=== PATIENT | male | born 1975 | race Native Hawaiian/Other Pacific Islander ===

== ENCOUNTER 2019-06-10 06:53 | Emergency (ER) | payer OTHER ==
[2019-06-10] MEDS ORDERED: BUFFERED LIDOCAINE 10 ML SYRINGE SUBQ STA (07:09)
[2019-06-10] MEDS ORDERED: TETANUS/DIPHTHERIA/PERTUSSIS 0.5 ML SYRINGE IM ONE (08:00)
--- NOTE | 2019-06-10 08:03 | ED Physician Documentation ---
PD HPI HEAD INJURY - Stated complaint Stated Complaint: HEAD LAC - Chief complaint Chief Complaint: Laceration - History obtained from History obtained from: Patient - History of Present Illness Mechanism of head injury: Fell Where head injury occurred: Work Timing - onset: Today Location of injury: Back Quality of pain: Pain Associated symptoms: Other (laceration). 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 He did not have any loss of consciousness associated with this he jumped right back up and had 2 large lacerations to the back of the scalp. He is coming now for suturing. He denies any nausea or vomiting he denies any neck pain. Denies any other specific injury associated with this fall. Review of Systems Constitutional: denies: Fever Eyes: denies: Decreased vision Ears: denies: Ear pain Nose: denies: Congestion Throat: denies: Sore throat Respiratory: denies: Cough GI: denies: Nausea, Vomiting Skin: reports: Laceration (s) PD PAST MEDICAL HISTORY - Past Medical History Past Medical History: No - Past Surgical History Past Surgical History: No - Present Medications Home Medications: Ambulatory Orders Medication Instructions Recorded Confirmed No Known Home Medications 06/10/19 06/10/19 - Allergies Allergies/Adverse Reactions: Allergies Allergy/AdvReac Type Severity Reaction Status Date / Time No Known Drug Allergies Allergy Verified 06/10/19 07:00 - Social History Does the pt smoke?: No Smoking Status: Never smoker Does the pt drink ETOH?: Yes Does the pt have substance abuse?: No - Immunizations Immunizations are current?: Yes PD ED PE NORMAL - Vitals Vital signs reviewed: Yes (hypertensive ) - General General: Alert and oriented X 3, No acute distress, Well developed/nourished - HEENT HEENT: PERRL, EOMI, Other (There are 2 linear lacerations to the occiput one is 4cm and the other is 6cm and there is a large hematoma without crepitance or step off to suggest fracture. ) - Neck Neck: Supple, no meningeal sign, No bony TTP - Respiratory Respiratory: No respiratory distress - Derm Derm: Normal color, Warm and dry, No rash - Extremities Extremities: No deformity, No edema - Neuro Neuro: Alert and oriented X 3, music mixer 2-12 intact, No motor deficit, No sensory deficit, Normal speech Eye Opening: Spontaneous Motor: Obeys Commands Verbal: Oriented GCS Score: 15 - Psych Psych: Normal mood, Normal affect Results - Vitals Vitals: Vital Signs - 24 hr 06/10/19 06:57 Temperature 36.3 C L Heart Rate 75 Respiratory 18 Rate Blood Pressure 153/95 H O2 Saturation 100 Oxygen O2 Source Room air Procedures - Laceration (location) scalp Length in cm: 10 (two lacs one is 4cm one is 6cm ) Wound type: Linear, Into subcut fat, Clean Neurovascular status: Sensory intact, Motor intact Anesthesia: Lidocaine 1%, With bicarb Wound Preparation: Hibiclens, Irrigated copiously NS, Wound explored, To the base Skin layer closure: Jacquelin Other: Patient tolerated well, No complications, Dressing applied, Tetanus booster given PD MEDICAL DECISION MAKING - ED course Complexity details: re-evaluated patient, considered differential, d/w patient ED course: 44 y/o male with scalp laceration after falling on a wet floor has jacquelin placed and tolerates the procedure well. Departure - Departure Disposition: 01 Home, Self Care Clinical Impression: Scalp laceration Qualifiers: Encounter type: initial encounter Qualified Code(s): S01.01XA - Laceration without foreign body of scalp, initial encounter Condition: Stable Instructions: ED Laceration Scalp Stitch Or Stap Follow-Up: [facility] [Provider Group] Comments: Jacquelin will need to be removed in 7-10 days
[2019-06-10 08:24] VITALS: BP 155/97
[2019-06-10] MEDS ORDERED: BACITRACIN ZINC OINT 14 GM TOP ONE (08:41)
== END 2019-06-10 08:38 | disposition home or self-care (01) ==
LOC: ED 06:53
DX: S01.01XA Laceration without foreign body of scalp, initial encounter (principal); W01.0XXA Fall on same level from slipping, tripping and stumbling without subsequent striking against object, initial encounter; Y93.E5 Activity, floor mopping and cleaning; Y92.511 Restaurant or cafe as the place of occurrence of the external cause; Y99.0 Civilian activity done for income or pay; Z23 Encounter for immunization
CPT/HCPCS: 1040M; 12004; 90471; 90715; 99283; 99284; A9270

== ENCOUNTER 2019-06-21 12:59 | Emergency (ER) | payer OTHER ==
[2019-06-21 13:09] VITALS: BP 167/77
--- NOTE | 2019-06-21 13:25 | ED Physician Documentation ---
History of Present Illness - Stated complaint Stated Complaint: HEAD SUTURE REMOVAL - Chief complaint Chief Complaint: General - History obtained from History obtained from: Patient - History of Present Illness Timing: How many days ago (10) Pain level max: 0 Pain level now: 0 - Additonal information Additional information: Leonidas placed in the occiput 10 days ago. Here for removal. No complaints. No drainage. No fevers. Review of Systems Constitutional: denies: Fever Skin: denies: Rash PD PAST MEDICAL HISTORY - Past Medical History Past Medical History: No - Past Surgical History Past Surgical History: No - Present Medications Home Medications: Ambulatory Orders Medication Instructions Recorded Confirmed No Known Home Medications 06/10/19 06/10/19 - Allergies Allergies/Adverse Reactions: Allergies Allergy/AdvReac Type Severity Reaction Status Date / Time No Known Drug Allergies Allergy Verified 06/10/19 07:00 - Social History Does the pt smoke?: No Smoking Status: Never smoker Does the pt drink ETOH?: Yes Does the pt have substance abuse?: No - Immunizations Immunizations are current?: Yes Immunizations: TDAP current <10years PD ED PE NORMAL - Vitals Vital signs reviewed: Yes - General General: Alert and oriented X 3, No acute distress - HEENT HEENT: Other (2 well-healed lacerations to the occiput. No signs of infection) - Derm Derm: Warm and dry - Neuro Neuro: Alert and oriented X 3 Results - Vitals Vitals: Vital Signs - 24 hr 06/21/19 13:08 Temperature 36.7 C Heart Rate 76 Respiratory 18 Rate Blood Pressure 167/77 H O2 Saturation 100 Oxygen O2 Source Room air PD MEDICAL DECISION MAKING - ED course Complexity details: considered differential, d/w patient ED course: Leonidas removed. No signs of infection. This document was made in part using voice recognition software. While efforts are made to proofread this document, sound alike and grammatical errors may occur. Departure - Departure Disposition: 01 Home, Self Care Clinical Impression: Removal of staple Condition: Good Instructions: ED Stap Removal No Complication Follow-Up: your,doctor as needed [Other] Comments: Return if you notice redness, swelling or drainage from the wound. Discharge Date/Time: 06/21/19 13:33
== END 2019-06-21 13:33 | disposition home or self-care (01) ==
LOC: ED 12:59
DX: S01.01XD Laceration without foreign body of scalp, subsequent encounter (principal); Z48.02 Encounter for removal of sutures
CPT/HCPCS: 99281

== ENCOUNTER 2021-02-23 11:52 | Inpatient (IN) | payer OTHER, MEDICAID ==
--- OUTSIDE RECORDS SUMMARY | 2021-02-23 11:56 | EXTERNAL MEDICAL SUMMARY RPT | Continuity of Care Document ---
:1975 Demographics Phone Unavailable Preferred Language Unknown Marital Status Unknown Hinduism Affiliation Unknown Race Unknown Ethnic Group Unknown Author Organization [place] Address [address] [phone] Phone Care Team Providers Name Role Phone Dudley MATUTE Unavailable Unavailable Registrar, Ashley Davis Patient Unavailable Unavai lable Allergies Encounters Medications Problems date description facility 20210222 No current problems or disability - unk nown All 20210222 Tobacco use and exposure All 20210222 Tobacco smoking status NHIS All 20210222 Never smoker All 20210222 Details of drug misuse behavior All 20210222 Cellulitis of left lower limb All 20210222 Cellulitis of foot All 20210222 Cellulitis and abscess of foot, except toes All 20210222 Alcohol use All Results Vital Signs date measurement value source 20210222 weight_standard 217 lb 20210222 weight_metric 98.43 kg 20210222 temperature_standard 99.7 F 20210222 temperature_metric 37.61 C 20210222 respiration_rate 16 /min 20210222 height_standard 69 in 20210222 height_metric 175.26 cm 20210222 heart_rate 89 /min 20210222 BP_systolic 167 mm[Hg] 20210222 BP_diastolic 100 mm[Hg] 20210222 BMI 32.16 kg/m2
--- OUTSIDE RECORDS SUMMARY | 2021-02-23 12:31 | EXTERNAL MEDICAL SUMMARY RPT | Continuity of Care Document ---
:1975 Demographics Phone Unavailable Preferred Language Unknown Marital Status Unknown Pentecostal Affiliation Unknown Race Unknown Ethnic Group Unknown Author Organization [place] Address [address] [phone] Phone Care Team Providers Name Role Phone Registrar, Ashley Davis Patient Unavailable Maliha wellington MD, Dudley Viveros Unavailable Unavailable Allergies Encounters Medications Problems date description facility [...]
[2021-02-23] MEDS ORDERED: VANCOMYCIN INJ 2 GM in SODIUM CHLORIDE 0.9% 500 ML IV ONE (12:44)
[2021-02-23] MEDS ORDERED: AMPICILLIN/SULBACTAM 3 GM in SODIUM CHLORIDE 0.9% MINIBAG 100 ML IV STA (12:44)
--- NOTE | 2021-02-23 12:45 | ED Physician Documentation ---
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 He feels like he might of gotten catalan to the left foot and has had progressive swelling and redness of that foot but only minimal pain. He is not diabetic but nor has he ever been checked for diabetes. That said he only has 1-2 episodes of nocturia per evening. He denies fevers. Review of Systems Ten Systems: 10 systems reviewed and negative Constitutional: denies: Fever, Chills Cardiac: denies: Chest pain / pressure, Palpitations Respiratory: denies: Dyspnea, Cough PD PAST MEDICAL HISTORY - Past Surgical History Past Surgical History: No - Present Medications Home Medications: Ambulatory Orders Medication Instructions Recorded Confirmed No Known Home Medications 06/10/19 02/23/21 - Allergies Allergies/Adverse Reactions: Allergies Allergy/AdvReac Type Severity Reaction Status Date / Time No Known Drug Allergies Allergy Verified 02/23/21 12:38 - Social History Does the pt smoke?: No Smoking Status: Never smoker Does the pt drink ETOH?: Yes Does the pt have substance abuse?: No - Immunizations Immunizations are current?: Yes Immunizations: TDAP current <10years PD ED PE NORMAL - Vitals Vital signs reviewed: Yes - General General: Alert and oriented X 3, No acute distress - HEENT HEENT: PERRL, EOMI - Neck Neck: Supple, no meningeal sign, No bony TTP - Cardiac Cardiac: RRR, No murmur - Respiratory Respiratory: No respiratory distress, Clear bilaterally - Abdomen Abdomen: Soft, Non tender - Back Back: No CVA TTP, No spinal TTP - Derm Derm: Normal color, Warm and dry - Extremities Extremities: Other (On the lateral side of the fifth metatarsal of the left foot there is a 1.5 cm ulcer. There is significant surrounding cellulitis up to the top of the foot medially and proximally. There is also what appears to be potentially an abscess over the dorsum of the fifth metatarsal.) - Neuro Neuro: Alert and oriented X 3, Normal speech Results - Vitals Vitals: Vital Signs - 24 hr 02/23/21 12:00 Temperature 37.0 C Heart Rate 84 Respiratory 16 Rate Blood Pressure 181/91 H O2 Saturation 98 Oxygen O2 Source Room air - Labs Labs: Laboratory Tests 02/23/21 02/23/21 02/23/21 12:50 12:50 12:50 WBC 8.6 RBC 4.85 Hgb 13.3 L Hct 41.2 L MCV 84.9 MCH 27.4 MCHC 32.3 RDW 13.3 Plt Count 431 MPV 9.5 Neut # (Auto) 6.6 Lymph # (Auto) 1.2 L Russell # (Auto) 0.7 Eos # (Auto) 0.1 Baso # (Auto) 0.1 Absolute Nucleated RBC 0.00 Nucleated RBC % 0.0 ESR 8 Sodium 137 Potassium 4.4 Chloride 96 L Carbon Dioxide 29 Anion Gap 12.0 BUN 15 Creatinine 1.3 H Estimated GFR (MDRD) 60 L Glucose 300 H Estimat Average Glucose Hemoglobin A1c % Calcium 9.0 C-Reactive Protein < 1.0 02/23/21 12:58 WBC RBC Hgb Hct MCV MCH MCHC RDW Plt Count MPV Neut # (Auto) Lymph # (Auto) Russell # (Auto) Eos # (Auto) Baso # (Auto) Absolute Nucleated RBC Nucleated RBC % ESR Sodium Potassium Chloride Carbon Dioxide Anion Gap BUN Creatinine Estimated GFR (MDRD) Glucose Estimat Average Glucose 177 H Hemoglobin A1c % 7.8 H Calcium C-Reactive Protein PD MEDICAL DECISION MAKING - ED course ED course: 45-year-old gentleman presents with a deep foot infection of the left foot with surprisingly little pain. He is not a previously dosed diagnosed diabetic but probably has undiagnosed diabetes based on potential neuropathy and labs. X-ray demonstrates osteomyelitis of the fifth metatarsal and proximal phalanx. Case was discussed by phone with Dr. Sage, orthopedics who will consult and Dr. Ramey for admission. He was given Unasyn and vancomycin after blood cultures and a wound culture was also obtained. Departure - Departure Disposition: [facility] DC/Xfer Clinical Impression: Hyperglycemia Foot osteomyelitis, left Qualifiers: Osteomyelitis type: other acute Qualified Code(s): M86.172 - Other acute osteomyelitis, left ankle and foot Condition: Stable
[2021-02-23 13:06] LABS: BASOPHILS # (AUTO) 0.1 10^3/uL (0.0-0.1); BASOPHILS % (AUTO) 0.6 %; EOSINOPHILS # (AUTO) 0.1 10^3/uL (0.0-0.7); EOSINOPHILS % (AUTO) 0.8 %; HCT - HEMATOCRIT 41.2 % (42.0-52.0); HGB - HEMOGLOBIN 13.3 g/dL (14.0-18.0); LYMPHOCYTES # (AUTO) 1.2 10^3/uL (1.5-3.5); LYMPHOCYTES % (AUTO) 13.5 %; MEAN CORPUSCULAR HEMOGLOBIN 27.4 pg (27.0-31.0); MEAN CORPUSCULAR HGB CONC 32.3 g/dL (32.0-36.0); MEAN CORPUSCULAR VOLUME 84.9 fL (80.0-94.0); MEAN PLATELET VOLUME 9.5 fL (7.4-11.4); MONOCYTES # (AUTO) 0.7 10^3/uL (0.0-1.0); MONOCYTES % (AUTO) 7.7 %; NEUTROPHILS # (AUTO) 6.6 10^3/uL (1.5-6.6); NEUTROPHILS % (AUTO) 77.2 %; PLT - PLATELET COUNT 431 10^3/uL (130-450); RED BLOOD COUNT 4.85 10^6/uL (4.70-6.10); RED CELL DISTRIBUTION WIDTH 13.3 % (12.0-15.0); WHITE BLOOD COUNT 8.6 x10^3/uL (4.8-10.8)
[2021-02-23 13:23] LABS: BUN - BLOOD UREA NITROGEN 15 mg/dL (6-20); CARBON DIOXIDE - CO2 29 mmol/L (21-32); CHLORIDE 96 mmol/L (101-111); CREATININE 1.3 mg/dL (0.6-1.2); GFR - MDRD 60 (>89); GLUCOSE 300 mg/dL (70-100); POTASSIUM 4.4 mmol/L (3.5-5.0); SODIUM 137 mmol/L (135-145)
[2021-02-23 13:24] LABS: ESTIMATED AVERAGE GLUCOSE 177 mg/dL (70-100); HEMOGLOBIN A1c% 7.8 % (4.27-6.07)
[2021-02-23 13:38] LABS: CRP - C-REACTIVE PROTEIN < 1.0 mg/dL (0-1.0)
--- NOTE | 2021-02-23 13:42 | XRAY Report ---
PROCEDURE: Foot 3 View LT INDICATIONS: foot infection TECHNIQUE: 3 views of the foot were acquired. COMPARISON: None FINDINGS: Bones: Erosive changes noted in the lateral margin of the head of the fifth metatarsal and the base o f the fifth proximal phalange compatible with osteomyelitis. Soft tissues: No tibiotalar joint effusion. Achilles tendon appears normal. No soft tissue gas. IMPRESSION: Fifth metatarsal and fifth proximal phalange osteomyelitis. Reviewed by: Zakia Carmona MD, PhD on 02/23/2021 1:40 PM PDT Approved by: Zakia Carmona MD, PhD on 02/23/2021 1:40 PM PDT Station ID: [id number]
[2021-02-23] MEDS ORDERED: ACETAMINOPHEN 325 MG TABLET PO PRN (13:46)
[2021-02-23] MEDS ORDERED: HYDROcod/ACETAM 5/325 MG TABLET PO PRN (13:46)
[2021-02-23] MEDS ORDERED: SODIUM CHLORIDE FLUSH 0.9% 10 ML SYRINGE IVP PRN (13:46)
[2021-02-23] MEDS ORDERED: ONDANSETRON 4 MG/2 ML VIAL IVP PRN (13:46)
[2021-02-23] MEDS ORDERED: HYDROmorphone 0.5 MG/0.5 ML SYRINGE IVP PRN (13:46)
--- NOTE | 2021-02-23 13:55 | HISTORY & PHYSICAL EXAMINATION ---
Chief Complaint - Chief Complaint Chief Complaint: left lateral foot and 5th toe swelling, redness and draining History of Present Illness - Admitted From Admitted From:: [facility] ED - History Obtained From Records Reviewed: yes History obtained from: patient - History of Present Illness HPI Comment/Other: Patient is a 45-year-old male with no known medical history who presented to the ED with complaint of increased pain, swelling, redness and malodorous drainage on the dorsal/lateral aspect of his left foot and fifth toe on that foot. His symptoms started 2 weeks ago. He thinks his shoe was a main contributing factor to the onset. He finally decided to come in today because the pain got unbearable. He denies fever or chills. In the ED work-up included an x-ray of the foot which showed 1 a fifth metatarsal and fifth proximal phalanges osteomyelitis. Also found to have a blood glucose of 300 with an A1c of 7.8. He denies any k nowledge of diabetes in the past. He is afebrile and his white blood cell count is normal. He denied chest pain, dyspnea, abdominal pain, nausea or vomiting. He was presented for admission for further treatment with IV antibiotics and orthopedic consult. History - Past Medical History Other Past Medical History: He denies any history of chronic medical conditions - Past Surgical History Other past surgical history: He denies any surgical history - Family & Social History Family History Comment/Other: Patient's mother in 2009 and a tsunami. His father in 2016 from old age. Living arrangement: At home Living Situation: With family Social History Notes: He lives at home with his uncle and brothers. He is single. He works as a cook at a local restaurant. He vapes and consumes alcohol occasionally. He does not use any recreational substances. - POLST Patient has POLST: No POLST Status: Full Code Meds/Allgy - Home Medications Home Medications: Ambulatory Orders Medication Instructions Recorded Confirmed No Known Home Medications 06/10/19 02/23/21 - Allergies Allergies/Adverse Reactions: Allergies Allergy/AdvReac Type Severity Reaction Status Date / Time No Known Drug Allergies Allergy Verified 02/23/21 12:38 Review of Systems - Constitutional Constitutional: denies: Fatigue, Fever, Chills - Eyes Eyes: denies: Pain, Vision loss - Ears, Nose & Throat Ears, Nose & Throat: denies: Ear pain, Sore throat - Cardiovascular Cariovascular: denies: Chest pain, Edema - Respiratory Respiratory: denies: Cough, Sputum production, Wheezing, SOB at rest, SOB with exertion - Gastrointestinal Gastrointestinal: denies: Abdominal pain, Abdominal distention, Constipation, Diarrhea, Nausea, Vomiting, Reflux/heartburn - Genitourinary Genitourinary: denies: Dysuria, Frequency, Urgency, Hematuria, Incontinence, Flank pain - Musculoskeletal Musculoskeletal: reports: Joint pain (left MCP joint). denies: Muscle pain, Back pain, Muscle aches - Integumentary Integumentary: reports: Other (redness on lateral aspect of left foot draining ulcer on lateral aspect of left foot). denies: Rash, Pruritis - Neurological Neurological: denies: General weakness, Focal weakness, Headache - Psychiatric Psychiatric: denies: Depression, Anxiety - Endocrine Endocrine: denies: Polyuria, Polydypsia - Hematologic/Lymphatic Hematologic/Lymphatic: denies: Anemia, Bruising, Petechiae Prior Level of Functionality: He is independent of activities of daily living Exam - Vital Signs Vital Signs: Vital Signs x48h Temp Pulse Resp BP Pulse Ox 02/23/21 12:00 37.0 C 84 16 181/91 H 98 - Physical Exam General Appearance: positive: Alert, Moderate distress Eyes Bilateral: positive: PERRL, EOMI ENT: positive: No signs of dehydration Neck: positive: No JVD, Trachea midline Respiratory: positive: Chest non-tender, No respiratory distress, Breath sounds nml. negative: Wheezes, Rales, Rhonchi Cardiovascular: positive: Regular rate & rhythm, No murmur, No gallop Abdomen: positive: Non-tender, No organomegaly, Nml bowel sounds, No distention. negative: Guarding, Rebound Back: positive: Nml inspection Skin: positive: Other (Ulcer on lateral aspect of left footwith malodorous drainage Redness on the dorsum and lateral aspect of left foot and fifth toe. Small abscess at the base of the fifth toe.) Extremities: positive: Non-tender, Full ROM, No pedal edema Neurologic/Psychiatric: positive: Oriented x3, Mood/affect nml Conclusion/Plan - Problem List (1) Septic arthritis Conclusion/Plan: This involved the MCP joint on the left foot. This started as an ulcer which then progressed to involve the joint. Patient was started on vancomycin and Unasyn after wound and blood cultures were obtained. Patient was seen by orthopedics Dr. Sage. The plan is to control the patient's blood sugar and treat with IV antibiotics for a couple of days before potential surgery. This would potentially involve amputation of the fifth toe. Pain management as needed. (3) Foot osteomyelitis, left Conclusion/Plan: This started as an ulcer which then progressed to involve the joint and then infected the affected bones. Patient was started on vancomycin and Unasyn after wound and blood cultures were obtained. Patient was seen by orthopedics Dr. Sage. The plan is to control the patient's blood sugar and treat with IV antibiotics for a couple of days before potential surgery. This would potentially involve amputation of the fifth toe. Pain management as needed. Qualifiers: Osteomyelitis type: other acute Qualified Code(s): M86.172 - Other acute os teomyelitis, left ankle and foot (4) Diabetes mellitus, new onset Conclusion/Plan: New onset. Patient's hemoglobin A1c was 7.8. Lantus 5 units subcu nightly ordered. Sliding scale insulin ordered. Accu-Cheks before every meal and at bedtime. Patient diet and exercise. Upon discharge will prescribe Metformin. We will also make referral for diabetic education. - Lab Results Fish Bones: 02/23/21 12:50 02/23/21 12:50 Core Measures - Anticipated LOS I expect patient to be DC'd or transferred within 96 hours.: Yes - DVT/VTE - Prophylaxis VTE/DVT Device ordered at admit?: Yes VTE/DVT Prophylaxis med ordered at admit?: Yes
--- NOTE | 2021-02-23 15:04 | CONSULTATION NOTE ---
Referring Provider Name of Referring Provider:: Dr. Alba Consult Date: 02/23/21 Chief Complaint - Chief Complaint Chief Complaint: Pain, redness, swelling and drainage lateral border left fifth toe History of Present Illness - History Obtained From Records Reviewed: Discussed with Dr. 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 This has persisted without much change until yesterday when he noted increased redness, swelling, discomfort and some drainage. He denies any injury or precipitating activity associated onset of symptoms. He thinks the area of skin breakdown was from his shoe. He denies abnormal sensation to his left foot. His pain is under good control at rest. He denies fever or chills. He denies history of previous diabetes but he does have a family history of diabetes.He presents today to the emergency room for first evaluation.He denies smoking of cigarettes but does vape. Meds/Allgy - Home Medications Home Medications: Ambulatory Orders Medication Instructions Recorded Confirmed No Known Home Medications 06/10/19 02/23/21 - Allergies Allergies/Adverse Reactions: Allergies Allergy/AdvReac Type Severity Reaction Status Date / Time No Known Drug Allergies Allergy Verified 02/23/21 12:38 Exam - Vital Signs Vital Signs: Vital Signs x48h Temp Pulse Resp BP Pulse Ox 02/23/21 14:39 71 16 161/95 H 98 02/23/21 12:00 37.0 C 84 16 181/91 H 98 - Physical Exam General Appearance: positive: No acute distress Cardiovascular: positive: Regular rate & rhythm Peripheral Pulses: positive: 2+ Skin: positive: Color nml Extremities: positive: Other (1 cm full-thickness ulcer lateral border fifth toe that communicates with bone and joint at the metatarsophalangeal joint level, soft tissue tract dorsal aspect of fifth metatarsal with a area of about 2 cm, fluctuant. Pulses intact. No vascular compromise or gangrene, mild necrosis base of ulcer) Neurologic/Psychiatric: positive: Oriented x3, Motor nml, Other (Gross sensation intact but light touch seems Diminished) Conclusion and Plan - Lab Results Laboratory Results 02/23/21 12:58: Estimat Average Glucose 177 H, Hemoglobin A1c % 7.8 H 02/23/21 12:50: Sodium 137, Potassium 4.4, Chloride 96 L, Carbon Dioxide 29, Anion Gap 12.0, BUN 15, Creatinine 1.3 H, Estimated GFR (MDRD) 60 L, Glucose 300 H, Calcium 9.0, C-Reactive Protein < 1.0 02/23/21 12:50: ESR 8 02/23/21 12:50: WBC 8.6, RBC 4.85, Hgb 13.3 L, Hct 41.2 L, MCV 84.9, MCH 27.4, MCHC 32.3, RDW 13.3, Plt Count 431, MPV 9.5, Neut # (Auto) 6.6, Lymph # (Auto) 1.2 L, [place] # (Auto) 0.7, Eos # (Auto) 0.1, Baso # (Auto) 0.1, Absolute Nucleated RBC 0.00, Nucleated RBC % 0.0 - Diagnostic Imaging Results Diagnostic Imaging Results: negative: Read independently (Destruction of fifth metatarsal phalangeal joint, lysis, extending into metatarsal head and base of proximal phalanx consistent with septic arthritis leading to osteomyelitis left fifth toe) - Diagnosis Diagnosis: Septic arthritis with osteomyelitis left fifth metatarsal phalangeal joint. Diabetes mellitus, probable neuropathy and elevated blood sugars - Plan Plan: He would be admitted to medicine where his diabetes and medical problems can be addressed including intravenous antibiotic therapy, local wound care with Silvadene gel to the left foot. I suspect he will need an amputation, left fifth metatarsal ray when his blood sugars can be brought under control and the cellulitis and swelling can be improved with antibiotics. The exact timing of the amputation will depend upon clinical findings but I suspect it will not happen at least until Friday or perhaps even several days later. I discussed this with the patient. He is agreement with the orthopedic plan at this time. Discussed case with hosptialist.
--- OUTSIDE RECORDS SUMMARY | 2021-02-23 15:14 | EXTERNAL MEDICAL SUMMARY RPT | Continuity of Care Document ---
:1975 Demographics Phone Unavailable Preferred Language Unknown Marital Status Unknown Scientology Affiliation Unknown Race Unknown Ethnic Group Unknown Author Organization [place] Address [address] [phone] Phone Care Team Providers Name Role Phone [...]
[2021-02-23 15:33] LABS: B. PARAPERTUSSIS- RESP PCR PAN NOT DETECTED; B. PERTUSSIS- RESP PCR PANEL NOT DETECTED; CORONAVIRUS 229E-RESP PCR NOT DETECTED; CORONAVIRUS HKU1-RESP PCR NOT DETECTED; CORONAVIRUS NL63-RESP PCR NOT DETECTED; CORONAVIRUS OC43-RESP PCR NOT DETECTED; HUMAN METAPNEUMOVIRUS NOT DETECTED; INFLUENZA A- RESP PCR PANEL NOT DETECTED; INFLUENZA B - RESP PCR PANEL NOT DETECTED; PARAINFLUENZA VIRUS 1 NOT DETECTED; PARAINFLUENZA VIRUS 2 NOT DETECTED; PARAINFLUENZA VIRUS 3 NOT DETECTED; PARAINFLUENZA VIRUS 4 NOT DETECTED; RHINOVIRUS/ENTEROVIRUS NOT DETECTED; RSV- RESP PCR PANEL NOT DETECTED; SARS-CoV-2 -RESP PCR PANEL NOT DETECTED
[2021-02-23 15:34] LABS: C. PNEUMONIAE- RESP PCR PANEL NOT DETECTED; M. PNEUMONIAE- RESP PCR PANEL NOT DETECTED
[2021-02-23] MEDS: SODIUM CHLORIDE 0.9% 1,000 ML IV SCH (16:33)
--- NOTE | 2021-02-23 16:55 | XRAY Report ---
PROCEDURE: Chest 1 View X-Ray INDICATIONS: pre-op eval TECHNIQUE: One view of the chest was acquired. COMPARISON: None FINDINGS: Surgical changes and devices: None. Lungs and pleura: No pleural effusions or pneumothorax. Lungs are clear. Mediastinum: Mediastinal contours appear normal. Heart size is normal. Bones and chest wall: No suspicious bony lesions. Thoracic spine degenerative disc disease. Overlyi ng soft tissues appear unremarkable. IMPRESSION: No acute cardiopulmonary disease process. Reviewed by: Zakia Carmona MD, PhD on 02/23/2021 4:54 PM PDT Approved by: Zakia Carmona MD, PhD on 02/23/2021 4:54 PM PDT Station ID: [id number]
[2021-02-23] MEDS: INSULIN ASPART 300 UNIT/3 ML PEN SUBQ SCH ×2 (16:58→21:17)
[2021-02-23] MEDS: SODIUM CHLORIDE FLUSH 0.9% 10 ML SYRINGE IVP SCH (16:59)
[2021-02-23] MEDS: AMPICILLIN/SULBACTAM 3 GM in SODIUM CHLORIDE 0.9% MINIBAG 100 ML IV SCH (18:03)
[2021-02-23] MEDS: INSULIN GLARGINE 300 UNIT/3 ML PEN SUBQ SCH (21:18)
[2021-02-23] MEDS: SILVER SULFADIAZINE CREAM 25 GM TUBE TOP SCH (21:18)
[2021-02-24] MEDS: AMPICILLIN/SULBACTAM 3 GM in SODIUM CHLORIDE 0.9% MINIBAG 100 ML IV SCH ×4 (00:09→18:27)
[2021-02-24] MEDS: SODIUM CHLORIDE FLUSH 0.9% 10 ML SYRINGE IVP SCH ×3 (00:09→18:17)
[2021-02-24] MEDS ORDERED: VANCOMYCIN INJ 1 GM, VANCOMYCIN INJ 250 MG in SODIUM CHLORIDE 0.9% 250 ML IV SCH (02:00)
[2021-02-24] MEDS: SODIUM CHLORIDE 0.9% 1,000 ML IV SCH ×2 (02:10→14:13)
[2021-02-24 06:15] LABS: BASOPHILS % (AUTO) 0.5 %; EOSINOPHILS # (AUTO) 0.2 10^3/uL (0.0-0.7); EOSINOPHILS % (AUTO) 2.5 %; HCT - HEMATOCRIT 37.7 % (42.0-52.0); HGB - HEMOGLOBIN 11.9 g/dL (14.0-18.0); LYMPHOCYTES # (AUTO) 2.1 10^3/uL (1.5-3.5); LYMPHOCYTES % (AUTO) 27.2 %; MEAN CORPUSCULAR HEMOGLOBIN 26.9 pg (27.0-31.0); MEAN CORPUSCULAR HGB CONC 31.6 g/dL (32.0-36.0); MEAN CORPUSCULAR VOLUME 85.1 fL (80.0-94.0); MEAN PLATELET VOLUME 9.4 fL (7.4-11.4); MONOCYTES # (AUTO) 0.6 10^3/uL (0.0-1.0); MONOCYTES % (AUTO) 8.2 %; NEUTROPHILS # (AUTO) 4.6 10^3/uL (1.5-6.6); NEUTROPHILS % (AUTO) 61.2 %; PLT - PLATELET COUNT 400 10^3/uL (130-450); RED BLOOD COUNT 4.43 10^6/uL (4.70-6.10); RED CELL DISTRIBUTION WIDTH 13.5 % (12.0-15.0); WHITE BLOOD COUNT 7.5 x10^3/uL (4.8-10.8)
[2021-02-24 06:27] LABS: CALCIUM 8.6 mg/dL (8.5-10.3); CREATININE 0.8 mg/dL (0.6-1.2)
[2021-02-24] MEDS: INSULIN ASPART 300 UNIT/3 ML PEN SUBQ SCH ×4 (08:18→21:21)
[2021-02-24] MEDS: SILVER SULFADIAZINE CREAM 25 GM TUBE TOP SCH ×2 (08:19→21:30)
--- NOTE | 2021-02-24 08:56 | PROVIDER PROGRESS NOTE ---
Assessment/Plan - Problem List (1) Septic arthritis Qualifiers: Septic arthritis location: foot Laterality: left Assessment/Plan: Pain and redness has significantly improved. Afebrile and white blood cell count is normal. Continue vancomycin and Unasyn. Patient's blood sugar is improved. Will await further input from orthopedics on Friday02/26/21 (2) Foot abscess, left Assessment/Plan: Pain and redness has significantly improved. Afebrile and white blood cell count is normal. Continue vancomycin and Unasyn. Patient's blood sugar is improved. Will await further input from orthopedics on Friday02/26/21 (3) Foot osteomyelitis, left Qualifiers: Osteomyelitis type: other acute Qualified Code(s): M86.172 - Other acute osteomyelitis, left ankle and foot Assessment/Plan: Pain and redness has significantly improved. Afebrile and white blood cell count is normal. Continue vancomycin and Unasyn. Patient's blood sugar is improved. Will await further input from orthopedics on Friday02/26/21 (4) Diabetes mellitus, new onset Assessment/Plan: New onset. Patient's hemoglobin A1c was 7.8. Lantus 5 units subcu nightly ordered. Sliding scale insulin ordered. Accu-Cheks before every meal and at bedtime. Patient advised on diet and exercise. Upon discharge will prescribe Metformin. We will also make referral for diabetic education. - Current Meds Current Meds: Current Medications Generic Name Dose Route Start Last Admin Trade Name Freq PRN Reason Stop Dose Admin Sodium Chloride 1,000 mls @ 100 mls/hr 02/23/21 14:00 02/24/21 02:10 Normal Saline 0.9% IV 100 mls/hr .Q10H CESARIO Administration Ampicillin Sodium/Sulbactam 100 mls @ 200 mls/hr 02/23/21 18:00 02/24/21 06 :27 Sodium 3 gm/ Sodium Chloride IV Infused Q6HR CESARIO Infusion Vancomycin HCl 1 gm/ 250 mls @ 167 mls/hr 02/24/21 02:00 02/24/21 03:40 Vancomycin HCl 250 mg/ Sodium IV Infused Chloride Q12H CESARIO Infusion Insulin Aspart 1 - 9 unit 02/23/21 17:00 02/24/21 08:18 Insulin Aspart 300 Unit/3 Ml Pen SUBQ 3 unit 0800,1200,1700,2100 CESARIO Administration Protocol Insulin Glargine 5 unit 02/23/21 21:00 02/23/21 21:18 Insulin Glargine 300 Unit/3 Ml Pen SUBQ 5 unit QPM CESARIO Administration Silver Sulfadiazine 1 applic 02/23/21 21:00 02/24/21 08:19 Silver Sulfadiazine Cream 25 Gm Tube TOP 1 applic BID CESARIO Administration Sodium Chloride 10 ml 02/23/21 17:00 02/24/21 08:19 Sodium Chloride Flush 0.9% 10 Ml Syringe IVP Not Given 0100,0900,1700 CESARIO - Lab Result Fish Bone Diagrams: 02/24/21 05:39 02/24/21 05:39 - Additional Planning My Orders: My Active Orders 02/23/21 Lunch Carb-controlled Diet [DIET] 02/23/21 13:46 Activity Orders [RC] Q2HR IO [RC] IOSHIFT Initiate Bowel Care Protocol [RC] .protocol Initiate Line Care Protocol [RC] QSHIFT Initiate Personal Care Protoco [RC] .protocol Telemetry- [RC] Q4HR Vital Signs [RC] Q4H Acetaminophen [Tylenol] 650 mg PO Q4HR PRN HYDROcod/ACETAM 5/325 [[place] 5/325] 1 tab PO Q4HR PRN HYDROmorphone 0.5MG SYRINGE [Dilaudid 0.5MG Syringe] 0.5 mg IVP Q2H PRN Ondansetron Inj [Zofran Inj] 4 mg IVP Q6HR PRN Sodium Chloride Flush 0.9% [Normal Saline Flush 0.9%] 10 ml IVP PRN PRN Code Status [OTHERS] Routine Condition of Patient [OTHERS] Routine DVT Prophylaxis [OTHERS] Routine 02/23/21 13:49 SCDs [RC] QSHIFT 02/23/21 14:00 Sodium Chloride 0.9% [Normal Saline 0.9%] 1,000 ml IV 100 mls/hr 02/23/21 14:42 Blood Glucose Checks - Eating [RC] 0800,1200,1700,2100 Initiate Hypoglycemia Protocol [RC] .protocol 02/23/21 17:00 Insulin Aspart [NovoLOG] 1 - 9 unit SUBQ 0800,1200,1700,2100 Sodium Chloride Flush 0.9% [Normal Saline Flush 0.9%] 10 ml IVP 0100,0900,1700 02/23/21 17:41 Nutrition Consult [CONS] Routine 02/23/21 18:00 Ampicillin/Sulbactam [Unasyn] 3 gm Sodium Chloride 0.9% Minibag [Normal Saline 0.9% Minibag] 100 ml IV Q6HR 02/23/21 21:00 Insulin Glargine [Lantus Solostar] 5 unit SUBQ QPM Silver Sulfadiazine Cream [Silvadene Cream] 1 applic TOP BID 02/24/21 02:00 Vancomycin Inj [Vancomycin] 1 gm Vancomycin Inj [Vancomycin Hcl] 250 mg Sodium Chloride 0.9% [Normal Saline 0.9%] 250 ml IV Q12H 02/25/21 05:00 BMP - BASIC METABOLIC PANEL [CHEM] DAILYLAB CBC - COMP BLD CT W/AUTO DIFF [HEME] DAILYLAB 02/26/21 05:00 BMP - BASIC METABOLIC PANEL [CHEM] DAILYLAB CBC - COMP BLD CT W/AUTO DIFF [HEME] DAILYLAB 02/27/21 05:00 BMP - BASIC METABOLIC PANEL [CHEM] DAILYLAB CBC - COMP BLD CT W/AUTO DIFF [HEME] DAILYLAB 02/28/21 05:00 BMP - BASIC METABOLIC PANEL [CHEM] DAILYLAB CBC - COMP BLD CT W/AUTO DIFF [HEME] DAILYLAB Subjective - Subjective Patient Reports: Other (Patient resting comfortably in bed. Denied any fever an d denied any significant pain in his left foot. Redness in the area appears to have improved.) Objective Vital Signs: Vital Signs - 24 hr 02/23/21 02/23/21 02/23/21 12:00 14:39 16:00 Temperature 37.0 C 36.9 C Heart Rate 84 71 Heart Rate [ 69 Brachial] Respiratory 16 16 20 Rate Blood Pressure 181/91 H 161/95 H Blood Pressure 145/85 H [Left Brachial artery] Blood Pressure [Right Brachial artery] O2 Saturation 98 98 97 02/23/21 02/24/21 02/24/21 21:00 00:26 05:00 Temperature 36.7 C 37.1 C 36.4 C L Heart Rate Heart Rate [ 65 61 62 Brachial] Respiratory 18 18 17 Rate Blood Pressure Blood Pressure 145/73 H 147/75 H 127/75 [Left Brachial artery] Blood Pressure [Right Brachial artery] O2 Saturation 98 96 100 02/24/21 07:31 Temperature 36.9 C Heart Rate Heart Rate [ 66 Brachial] Respiratory 16 Rate Blood Pressure Blood Pressure [Left Brachial artery] Blood Pressure 141/63 H [Right Brachial artery] O2 Saturation 99 Oxygen O2 Source Room air I&O (Last 24 Hrs): Intake and Output Totals x24h 02/22/21 02/23/21 02/24/21 23:59 23:59 23:59 Intake Total 1135.776 0429.333 Output Total 1 Balance 1532.341 2045.333 General: Alert, Oriented x3, Mild distress HEENT: PERRLA, EOMI Neck: Supple, No JVD Neuro: Alert, Non Focal, Oriented Times 3 Cardiovascular: Regular rate Respiratory: Chest non-tender, No respiratory distress, Breath sounds nml Abdomen: Normal bowel sounds, Soft Extremities: No clubbing, No edema, Other (Left foot redness improved) Skin: No breakdown (ulcer on dorso-lateral aspect of left foot) - Results Results: Laboratory Results WBC 7.5 x10^3/uL (4.8-10.8) 02/24/21 05:39 RBC 4.43 10^6/uL (4.70-6.10) L 02/24/21 05:39 Hgb 11.9 g/dL (14.0-18.0) L 02/24/21 05:39 Hct 37.7 % (42.0-52.0) L 02/24/21 05:39 MCV 85.1 fL (80.0-94.0) 02/24/21 05:39 MCH 26.9 pg (27.0-31.0) L 02/24/21 05:39 MCHC 31.6 g/dL (32.0-36.0) L 02/24/21 05:39 RDW 13.5 % (12.0-15.0) 02/24/21 05:39 Plt Count 400 10^3/uL (130-450) 02/24/21 05:39 MPV 9.4 fL (7.4-11.4) 02/24/21 05:39 Neut # (Auto) 4.6 10^3/uL (1.5-6.6) 02/24/21 05:39 Lymph # (Auto) 2.1 10^3/uL (1.5-3.5) 02/24/21 05:39 [place] # (Auto) 0.6 10^3/uL (0.0-1.0) 02/24/21 05:39 Eos # (Auto) 0.2 10^3/uL (0.0-0.7) 02/24/21 05:39 Baso # (Auto) 0.0 10^3/uL (0.0-0.1) 02/24/21 05:39 Absolute Nucleated RBC 0.00 x10^3/uL 02/24/21 05:39 Nucleated RBC % 0.0 /100WBC 02/24/21 05:39 ESR 8 mm/Hr (0-15) 02/23/21 12:50 Sodium 137 mmol/L (135-145) 02/24/21 05:39 Potassium 4.0 mmol/L (3.5-5.0) 02/24/21 05:39 Chloride 102 mmol/L (101-111) 02/24/21 05:39 Carbon Dioxide 28 mmol/L (21-32) 02/24/21 05:39 Anion Gap 7.0 (6-13) 02/24/21 05:39 BUN 12 mg/dL (6-20) 02/24/21 05:39 Creatinine 0.8 mg/dL (0.6-1.2) 02/24/21 05:39 Estimated GFR (MDRD) 105 (>89) 02/24/21 05:39 Glucose 166 mg/dL (70-100) H 02/24/21 05:39 POC Whole Bld Glucose 188 mg/dL (70 - 100) H 02/24/21 07:30 Estimat Average Glucose 177 mg/dL (70-100) H 02/23/21 12:58 Hemoglobin A1c % 7.8 % (4.27-6.07) H 02/23/21 12:58 Calcium 8.6 mg/dL (8.5-10.3) 02/24/21 05:39 C-Reactive Protein < 1.0 mg/dL (0-1.0) 02/23/21 12:50 Nasal Adenovirus (PCR) NOT DETECTED 02/23/21 14:30 Nasal B. parapertussis DNA (PCR) NOT DETECTED 02/23/21 14:30 Nasal Coronavir 229E PCR NOT DETECTED 02/23/21 14:30 Nasal Coronavir HKU1 PCR NOT DETECTED 02/23/21 14:30 Nasal Coronavir NL63 PCR NOT DETECTED 02/23/21 14:30 Nasal Coronavir OC43 PCR NOT DETECTED 02/23/21 14:30 Nasal Enterovir/Rhinovir PCR NOT DETECTED 02/23/21 14:30 Nasal Influenza B PCR NOT DETECTED 02/23/21 14:30 Nasal Influenza A PCR NOT DETECTED 02/23/21 14:30 Nasal Parainfluen 1 PCR NOT DETECTED 02/23/21 14:30 Nasal Parainfluen 2 PCR NOT DETECTED 02/23/21 14:30 Nasal Parainfluen 3 PCR NOT DETECTED 02/23/21 14:30 Nasal Parainfluen 4 PCR NOT DETECTED 02/23/21 14:30 Nasal RSV (PCR) NOT DETECTED 02/23/21 14:30 Nasal B.pertussis DNA PCR NOT DETECTED 02/23/21 14:30 Nasal C.pneumoniae (PCR) NOT DETECTED 02/23/21 14:30 [place] Human Metapneumo PCR NOT DETECTED 02/23/21 14:30 Nasal M.pneumoniae (PCR) NOT DETECTED 02/23/21 14:30 Nasal SARS-CoV-2 (PCR) NOT DETECTED 02/23/21 14:30 ABX Reporting Has patient been on IV antibiotics over the past 48 hours?: Yes
--- NOTE | 2021-02-24 12:22 | PROVIDER PROGRESS NOTE ---
Subjective - General Admit Date: 02/23/21 - Review of Systems General: positive: No symptoms Objective - Patient Data Vital Signs: Vital Signs x48h Temp Pulse Resp BP BP Pulse Ox 02/24/21 07:31 36.9 C 66 16 141/63 H 99 02/24/21 05:00 36.4 C L 62 17 127/75 100 Weight: Weight 02/22/21 02/23/21 02/24/21 23:59 23:59 23:59 Weight (kg) 97 kg Intake & Output: Intake and Output Totals x24h 02/22/21 02/23/21 02/24/21 23:59 23:59 23:59 Intake Total 7859.991 2110.333 Output Total 1 Balance 6806.977 3703.333 - Lab Results Lab Results: 02/24/21 05:39 02/24/21 05:39 Other Lab Results: Lab Results x24hrs 02/24/21 02/24/21 02/24/21 Range/Units 11:13 07:30 05:39 WBC (4.8-10.8) x10^3/uL RBC (4.70-6.10) 10^6/uL Hgb (14.0-18.0) g/dL Hct (42.0-52.0) % MCV (80.0-94.0) fL MCH (27.0-31.0) pg MCHC (32.0-36.0) g/dL RDW (12.0-15.0) % Plt Count (130-450) 10^3/uL MPV (7.4-11.4) fL Neut # (Auto) (1.5-6.6) 10^3/uL Lymph # (Auto) (1.5-3.5) 10^3/uL [place] # (Auto) (0.0-1.0) 10^3/uL Eos # (Auto) (0.0-0.7) 10^3/uL Baso # (Auto) (0.0-0.1) 10^3/uL Absolute Nucleated RBC x10^3/uL Nucleated RBC % /100WBC ESR (0-15) mm/Hr Sodium 137 (135-145) mmol/L Potassium 4.0 (3.5-5.0) mmol/L Chloride 102 (101-111) mmol/L Carbon Dioxide 28 (21-32) mmol/L Anion Gap 7.0 (6-13) BUN 12 (6-20) mg/dL Creatinine 0.8 (0.6-1.2) mg/dL Estimated GFR (MDRD) 105 (>89) Glucose 166 H (70-100) mg/dL POC Whole Bld Glucose 149 H 188 H (70 - 100) mg/dL Estimat Average Glucose (70-100) mg/dL Hemoglobin A1c % (4.27-6.07) % Calcium 8.6 (8.5-10.3) mg/dL C-Reactive Protein (0-1.0) mg/dL Nasal Adenovirus (PCR) Nasal B. parapertussis DNA (PCR) Nasal Coronavir 229E PCR Nasal Coronavir HKU1 PCR Nasal Coronavir NL63 PCR Nasal Coronavir OC43 PCR Nasal Enterovir/Rhinovir PCR Nasal Influenza B PCR Nasal Influenza A PCR Nasal Parainfluen 1 PCR Nasal Parainfluen 2 PCR Nasal Parainfluen 3 PCR Nasal Parainfluen 4 PCR Nasal RSV (PCR) Nasal B.pertussis DNA PCR Nasal C.pneumoniae (PCR) Noam Human Metapneumo PCR Nasal M.pneumoniae (PCR) Nasal SARS-CoV-2 (PCR) 02/24/21 02/24/21 02/23/21 Range/Units 05:39 00:09 20:47 WBC 7.5 (4.8-10.8) x10^3/uL RBC 4.43 L (4.70-6.10) 10^6/uL Hgb 11.9 L (14.0-18.0) g/dL Hct 37.7 L (42.0-52.0) % MCV 85.1 (80.0-94.0) fL MCH 26.9 L (27.0-31.0) pg MCHC 31.6 L (32.0-36.0) g/dL RDW 13.5 (12.0-15.0) % Plt Count 400 (130-450) 10^3/uL MPV 9.4 (7.4-11.4) fL Neut # (Auto) 4.6 (1.5-6.6) 10^3/uL Lymph # (Auto) 2.1 (1.5-3.5) 10^3/uL [place] # (Auto) 0.6 (0.0-1.0) 10^3/uL Eos # (Auto) 0.2 (0.0-0.7) 10^3/uL Baso # (Auto) 0.0 (0.0-0.1) 10^3/uL Absolute Nucleated RBC 0.00 x10^3/uL Nucleated RBC % 0.0 /100WBC ESR (0-15) mm/Hr Sodium (135-145) mmol/L Potassium (3.5-5.0) mmol/L Chloride (101-111) mmol/L Carbon Dioxide (21-32) mmol/L Anion Gap (6-13) BUN (6-20) mg/dL Creatinine (0.6-1.2) mg/dL Estimated GFR (MDRD) (>89) Glucose (70-100) mg/dL POC Whole Bld Glucose 170 H 165 H (70 - 100) mg/dL Estimat Average Glucose (70-100) mg/dL Hemoglobin A1c % (4.27-6.07) % Calcium (8.5-10.3) mg/dL C-Reactive Protein (0-1.0) mg/dL Nasal Adenovirus (PCR) Nasal B. parapertussis DNA (PCR) Nasal Coronavir 229E PCR Nasal Coronavir HKU1 PCR Nasal Coronavir NL63 PCR Nasal Coronavir OC43 PCR Nasal Enterovir/Rhinovir PCR Nasal Influenza B PCR Nasal Influenza A PCR Nasal Parainfluen 1 PCR Nasal Parainfluen 2 PCR Nasal Parainfluen 3 PCR Nasal Parainfluen 4 PCR Nasal RSV (PCR) Nasal B.pertussis DNA PCR Nasal C.pneumoniae (PCR) [place]am Human Metapneumo PCR Nasal M.pneumoniae (PCR) Nasal SARS-CoV-2 (PCR) 02/23/21 02/23/21 02/23/21 Range/Units 16:46 14:30 12:58 WBC (4.8-10.8) x10^3/uL RBC (4.70-6.10) 10^6/uL Hgb (14.0-18.0) g/dL Hct (42.0-52.0) % MCV (80.0-94.0) fL MCH (27.0-31.0) pg MCHC (32.0-36.0) g/dL RDW (12.0-15.0) % Plt Count (130-450) 10^3/uL MPV (7.4-11.4) fL Neut # (Auto) (1.5-6.6) 10^3/uL Lymph # (Auto) (1.5-3.5) 10^3/uL [place] # (Auto) (0.0-1.0) 10^3/uL Eos # (Auto) (0.0-0.7) 10^3/uL Baso # (Auto) (0.0-0.1) 10^3/uL Absolute Nucleated RBC x10^3/uL Nucleated RBC % /100WBC ESR (0-15) mm/Hr Sodium (135-145) mmol/L Potassium (3.5-5.0) mmol/L Chloride (101-111) mmol/L Carbon Dioxide (21-32) mmol/L Anion Gap (6-13) BUN (6-20) mg/dL Creatinine (0.6-1.2) mg/dL Estimated GFR (MDRD) (>89) Glucose (70-100) mg/dL POC Whole Bld Glucose 156 H (70 - 100) mg/dL Estimat Average Glucose 177 H (70-100) mg/dL Hemoglobin A1c % 7.8 H (4.27-6.07) % Calcium (8.5-10.3) mg/dL C-Reactive Protein (0-1.0) mg/dL Nasal Adenovirus (PCR) NOT DETECTED Nasal B. parapertussis DNA (PCR) NOT DETECTED Nasal Coronavir 229E PCR NOT DETECTED Nasal Coronavir HKU1 PCR NOT DETECTED Nasal Coronavir NL63 PCR NOT DETECTED Nasal Coronavir OC43 PCR NOT DETECTED Nasal Enterovir/Rhinovir PCR NOT DETECTED Nasal Influenza B PCR NOT DETECTED Nasal Influenza A PCR NOT DETECTED Nasal Parainfluen 1 PCR NOT DETECTED Nasal Parainfluen 2 PCR NOT DETECTED Nasal Parainfluen 3 PCR NOT DETECTED Nasal Parainfluen 4 PCR NOT DETECTED Nasal RSV (PCR) NOT DETECTED Nasal B.pertussis DNA PCR NOT DETECTED Nasal C.pneumoniae (PCR) NOT DETECTED Noam Human Metapneumo PCR NOT DETECTED Nasal M.pneumoniae (PCR) NOT DETECTED Nasal SARS-CoV-2 (PCR) NOT DETECTED 02/23/21 02/23/21 02/23/21 Range/Units 12:50 12:50 12:50 WBC 8.6 (4.8-10.8) x10^3/uL RBC 4.85 (4.70-6.10) 10^6/uL Hgb 13.3 L (14.0-18.0) g/dL Hct 41.2 L (42.0-52.0) % MCV 84.9 (80.0-94.0) fL MCH 27.4 (27.0-31.0) pg MCHC 32.3 (32.0-36.0) g/dL RDW 13.3 (12.0-15.0) % Plt Count 431 (130-450) 10^3/uL MPV 9.5 (7.4-11.4) fL Neut # (Auto) 6.6 (1.5-6.6) 10^3/uL Lymph # (Auto) 1.2 L (1.5-3.5) 10^3/uL [place] # (Auto) 0.7 (0.0-1.0) 10^3/uL Eos # (Auto) 0.1 (0.0-0.7) 10^3/uL Baso # (Auto) 0.1 (0.0-0.1) 10^3/uL Absolute Nucleated RBC 0.00 x10^3/uL Nucleated RBC % 0.0 /100WBC ESR 8 (0-15) mm/Hr Sodium 137 (135-145) mmol/L Potassium 4.4 (3.5-5.0) mmol/L Chloride 96 L (101-111) mmol/L Carbon Dioxide 29 (21-32) mmol/L Anion Gap 12.0 (6-13) BUN 15 (6-20) mg/dL Creatinine 1.3 H (0.6-1.2) mg/dL Estimated GFR (MDRD) 60 L (>89) Glucose 300 H (70-100) mg/dL POC Whole Bld Glucose (70 - 100) mg/dL Estimat Average Glucose (70-100) mg/dL Hemoglobin A1c % (4.27-6.07) % Calcium 9.0 (8.5-10.3) mg/dL C-Reactive Protein < 1.0 (0-1.0) mg/dL Nasal Adenovirus (PCR) Nasal B. parapertussis DNA (PCR) Nasal Coronavir 229E PCR Nasal Coronavir HKU1 PCR Nasal Coronavir NL63 PCR Nasal Coronavir OC43 PCR Nasal Enterovir/Rhinovir PCR Nasal Influenza B PCR Nasal Influenza A PCR Nasal Parainfluen 1 PCR Nasal Parainfluen 2 PCR Nasal Parainfluen 3 PCR Nasal Parainfluen 4 PCR Nasal RSV (PCR) Nasal B.pertussis DNA PCR Nasal C.pneumoniae (PCR) Noam Human Metapneumo PCR Nasal M.pneumoniae (PCR) Nasal SARS-CoV-2 (PCR) - Current Medications Current Medications: Current Medications Generic Name Dose Route Start Last Admin Trade Name Freq PRN Reason Stop Dose Admin Sodium Chloride 1,000 mls @ 100 mls/hr 02/23/21 14:00 02/24/21 02:10 Normal Saline 0.9% IV 100 mls/hr .Q10H CESARIO Administration Ampicillin Sodium/Sulbactam 100 mls @ 200 mls/hr 02/23/21 18:00 02/24/21 12:00 Sodium 3 gm/ Sodium Chloride IV 200 mls/hr Q6HR CESARIO Administration Vancomycin HCl 1 gm/ 250 mls @ 167 mls/hr 02/24/21 02:00 02/24/21 03:40 Vancomycin HCl 250 mg/ Sodium IV Infused Chloride Q12H CESARIO Infusion Insulin Aspart 1 - 9 unit 02/23/21 17:00 02/24/21 11:59 Insulin Aspart 300 Unit/3 Ml Pen SUBQ 1 unit 0800,1200,1700,2100 CESARIO Administration Protocol Insulin Glargine 5 unit 02/23/21 21:00 02/23/21 21:18 Insulin Glargine 300 Unit/3 Ml Pen SUBQ 5 unit QPM CESARIO Administration Silver Sulfadiazine 1 applic 02/23/21 21:00 02/24/21 08:19 Silver Sulfadiazine Cream 25 Gm Tube TOP 1 applic BID CESARIO Administration Sodium Chloride 10 ml 02/23/21 17:00 02/24/21 08:19 Sodium Chloride Flush 0.9% 10 Ml Syringe IVP Not Given 0100,0900,1700 [facility] - Physical Exam Wound/Incisions: negative: Other (Redness and fluctuance as well as swelling is improved to the lateral border left foot. There is still some drainage that can be expressed by pressing on the area of fluctuance.) Skin: negative: Other (Lateral ulcer over fifth metatarsal phalangeal joint remains unchanged; ulcer communicates to metatarsal phalangeal joint and to dorsal soft tissue fluctuance more proximally over the fifth metatarsal) Neurologic/Psychiatric: positive: Oriented x3, Motor nml Impression/Plan - Problem List Problem List: Diabetic neuropathy, ulcer, septic arthritis metatarsal phalangeal joint left fifth toe, osteomyelitis proximal phalanx and metatarsal head left fifth toe and soft tissue infection fifth metatarsal His diabetes is being brought under control with insulin and Metformin. He has been on Unasyn and vancomycin. His infection is definitely improving. Definitive culture report is not available yet. I would continue present treatment, consider discharge or surgical treatment on Friday. If he is discharged, he will need oral antibiotics most likely Augmentin. He also will eventually need a 5th metatarsal ray amputation to left foot. I would like the soft tissues to be in better condition before performing a 5th metatarsal ray amputation.He could ambulate with a short boot walker left foot. I would continue Silvadene gel dressing change to the ulcer.
[2021-02-24] MEDS: INSULIN GLARGINE 300 UNIT/3 ML PEN SUBQ SCH (21:25)
[2021-02-25] MEDS: SODIUM CHLORIDE FLUSH 0.9% 10 ML SYRINGE IVP SCH ×2 (00:01→07:57)
[2021-02-25] MEDS: AMPICILLIN/SULBACTAM 3 GM in SODIUM CHLORIDE 0.9% MINIBAG 100 ML IV SCH ×3 (00:01→12:12)
[2021-02-25] MEDS: SODIUM CHLORIDE 0.9% 1,000 ML IV SCH (01:14)
[2021-02-25 05:11] LABS: BASOPHILS # (AUTO) 0.1 10^3/uL (0.0-0.1); BASOPHILS % (AUTO) 0.7 %; EOSINOPHILS # (AUTO) 0.2 10^3/uL (0.0-0.7); EOSINOPHILS % (AUTO) 2.8 %; HCT - HEMATOCRIT 39.2 % (42.0-52.0); HGB - HEMOGLOBIN 12.2 g/dL (14.0-18.0); LYMPHOCYTES # (AUTO) 2.3 10^3/uL (1.5-3.5); LYMPHOCYTES % (AUTO) 30.6 %; MEAN CORPUSCULAR HEMOGLOBIN 26.9 pg (27.0-31.0); MEAN CORPUSCULAR HGB CONC 31.1 g/dL (32.0-36.0); MEAN CORPUSCULAR VOLUME 86.5 fL (80.0-94.0); MEAN PLATELET VOLUME 9.4 fL (7.4-11.4); MONOCYTES # (AUTO) 0.5 10^3/uL (0.0-1.0); MONOCYTES % (AUTO) 6.7 %; NEUTROPHILS # (AUTO) 4.5 10^3/uL (1.5-6.6); NEUTROPHILS % (AUTO) 58.8 %; PLT - PLATELET COUNT 407 10^3/uL (130-450); RED BLOOD COUNT 4.53 10^6/uL (4.70-6.10); RED CELL DISTRIBUTION WIDTH 13.7 % (12.0-15.0); WHITE BLOOD COUNT 7.6 x10^3/uL (4.8-10.8)
[2021-02-25 05:24] LABS: CALCIUM 8.5 mg/dL (8.5-10.3); CREATININE 0.7 mg/dL (0.6-1.2); POTASSIUM 3.8 mmol/L (3.5-5.0)
[2021-02-25] MEDS: INSULIN ASPART 300 UNIT/3 ML PEN SUBQ SCH ×2 (07:39→12:11)
[2021-02-25] MEDS: SILVER SULFADIAZINE CREAM 25 GM TUBE TOP SCH (08:47)
--- NOTE | 2021-02-25 11:40 | PROVIDER PROGRESS NOTE ---
Subjective - General Admit Date: 02/23/21 - Review of Systems Wound/Incisions: negative: Other (Redness and fluctuance as well as swelling is improved to the lateral border left foot. There is still some drainage that can be expressed by pressing on the area of fluctuance.) General: negative: No symptoms (He denies pain to left foot or paresthesias) Objective - Patient Data Vital Signs: Vital Signs x48h Temp Pulse Resp BP Pulse Ox 02/25/21 08:55 36.6 C 55 L 20 127/65 98 02/25/21 05:00 36.4 C L 59 L 18 148/79 H 98 Weight: Weight 02/23/21 02/24/21 02/25/21 23:59 23:59 23:59 Weight (kg) 97 kg Intake & Output: Intake and Output Totals x24h 02/23/21 02/24/21 02/25/21 23:59 23:59 23:59 Intake Total 0837.174 2876.000 773.333 Output Total 1 Balance 1987.048 6025.000 773.333 - Lab Results Lab Results: 02/25/21 04:54 02/25/21 04:54 Other Lab Results: Lab Results x24hrs 02/25/21 02/25/21 02/25/21 Range/Units 07:35 04:54 04:54 WBC 7.6 (4.8-10.8) x10^3/uL RBC 4.53 L (4.70-6.10) 10^6/uL Hgb 12.2 L (14.0-18.0) g/dL Hct 39.2 L (42.0-52.0) % MCV 86.5 (80.0-94.0) fL MCH 26.9 L (27.0-31.0) pg MCHC 31.1 L (32.0-36.0) g/dL RDW 13.7 (12.0-15.0) % Plt Count 407 (130-450) 10^3/uL MPV 9.4 (7.4-11.4) fL Neut # (Auto) 4.5 (1.5-6.6) 10^3/uL Lymph # (Auto) 2.3 (1.5-3.5) 10^3/uL [place] # (Auto) 0.5 (0.0-1.0) 10^3/uL Eos # (Auto) 0.2 (0.0-0.7) 10^3/uL Baso # (Auto) 0.1 (0.0-0.1) 10^3/uL Absolute Nucleated RBC 0.00 x10^3/uL Nucleated RBC % 0.0 /100WBC Sodium 137 (135-145) mmol/L Potassium 3.8 (3.5-5.0) mmol/L Chloride 101 (101-111) mmol/L Carbon Dioxide 29 (21-32) mmol/L Anion Gap 7.0 (6-13) BUN 11 (6-20) mg/dL Creatinine 0.7 (0.6-1.2) mg/dL Estimated GFR (MDRD) 122 (>89) Glucose 143 H (70-100) mg/dL POC Whole Bld Glucose 119 H (70 - 100) mg/dL Calcium 8.5 (8.5-10.3) mg/dL 02/24/21 02/24/21 Range/Units 20:43 16:31 WBC (4.8-10.8) x10^3/uL RBC (4.70-6.10) 10^6/uL Hgb (14.0-18.0) g/dL Hct (42.0-52.0) % MCV (80.0-94.0) fL MCH (27.0-31.0) pg MCHC (32.0-36.0) g/dL RDW (12.0-15.0) % Plt Count (130-450) 10^3/uL MPV (7.4-11.4) fL Neut # (Auto) (1.5-6.6) 10^3/uL Lymph # (Auto) (1.5-3.5) 10^3/uL [place] # (Auto) (0.0-1.0) 10^3/uL Eos # (Auto) (0.0-0.7) 10^3/uL Baso # (Auto) (0.0-0.1) 10^3/uL Absolute Nucleated RBC x10^3/uL Nucleated RBC % /100WBC Sodium (135-145) mmol/L Potassium (3.5-5.0) mmol/L Chloride (101-111) mmol/L Carbon Dioxide (21-32) mmol/L Anion Gap (6-13) BUN (6-20) mg/dL Creatinine (0.6-1.2) mg/dL Estimated GFR (MDRD) (>89) Glucose (70-100) mg/dL POC Whole Bld Glucose 135 H 129 H (70 - 100) mg/dL Calcium (8.5-10.3) mg/dL - Current Medications Current Medications: Current Medications Generic Name Dose Route Start Last Admin Trade Name Freq PRN Reason Stop Dose Admin Sodium Chloride 1,000 mls @ 100 mls/hr 02/23/21 14:00 02/25/21 01:14 Normal Saline 0.9% IV 100 mls/hr .Q10H [facility] Administration Ampicillin Sodium/Sulbactam 100 mls @ 200 mls/hr 02/23/21 18:00 02/25/21 07:18 Sodium 3 gm/ Sodium Chloride IV Infused Q6HR CESARIO Infusion Insulin Aspart 1 - 9 unit 02/23/21 17:00 02/25/21 07:39 Insulin Aspart 300 Unit/3 Ml Pen SUBQ Not Given 0800,1200,1700,2100 [facility] Protocol Insulin Glargine 5 unit 02/23/21 21:00 02/24/21 21:25 Insulin Glargine 300 Unit/3 Ml Pen SUBQ 5 unit QPM CESARIO Administration Silver Sulfadiazine 1 applic 02/23/21 21:00 02/25/21 08:47 Silver Sulfadiazine Cream 25 Gm Tube TOP 1 applic BID CESARIO Administration Sodium Chloride 10 ml 02/23/21 17:00 02/25/21 07:57 Sodium Chloride Flush 0.9% 10 Ml Syringe IVP Not Given 0100,0900,1700 [facility] - Physical Exam Wound/Incisions: negative: Other (Swelling has decreased considerably to left foot, there is no erythema, skin wrinkles, the area of fluctuance over the dorsal aspect of the fifth metatarsal is approximately 1.5 cm, bloody drainage is mild through ulcer when the area of fluctuance is compressed. 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 I think His outpatient treatment should include a course of antibiotics with Augmentin 875 mg twice daily would be helpful. His cultures are positive, polymicrobial infection with gram positive cocci and gram-negative bacilli. Culture sensitivities are still pending, blood cultures were negative.He is responding to Unasyn. He could be discharged today but will need a planned staged operative procedure to do a left fifth metatarsal ray amputation probably in approximately 5 to 7 days and most likely done as outpatient surgical procedure. He should continue with the Silvadene gel sterile dressing to left foot, short boot walker for limited ambulation, elevation of foot, Augmentin 875 mg twice daily, and Metformin and diabetic instructions. I would like for him to be seen in the orthopedic clinic in follow-up on 02/27/2021.
[2021-02-25 11:44] VITALS: BP 159/89
--- NOTE | 2021-02-25 12:45 | DISCHARGE SUMMARY ---
Discharge Summary Admit Date: 02/23/21 Discharge Date: 02/25/21 Discharging Provider: Lilia Ramey Code Status: Attempt Resuscitation Condition at Discharge: Stable Discharge Disposition: 01 Home, Self Care - DIAGNOSES Admission Diagnoses: Septic arthritis Left foot osteomyelitis Left foot abscess Diabetes mellitus new onset Discharge Diagnoses with Status of Each Condition: Septic arthritis: Acute. Patient receiving antibiotics. To follow-up with orthopedics in the outpatient setting for surgery. Left foot osteomyelitis: Acute. Patient receiving antibiotics. To follow-up with orthopedics in the outpatient setting for surgery. Left foot abscess: Acute. Patient receiving antibiotics. To follow-up with orthopedics in the outpatient setting for surgery. Diabetes mellitus new onset: Acute. Hemoglobin A1c 7.8. Patient started on Metformin 500 mg daily. To establish care and follow-up with a primary care physician for further management. - HPI History of Present Illness: Patient is a 45-year-old male with no known medical history who presented to the ED with complaint of increased pain, swelling, redness and malodorous drainage on the dorsal/lateral aspect of his left foot and fifth toe on that foot. His symptoms started 2 weeks ago. He thinks his shoe was a main contributing factor to the onset. He finally decided to come in today because the pain got unbearable. He denies fever or chills. In the ED work-up included an x-ray of the foot which showed 1 a fifth metatarsal and fifth proximal phalanges osteomyelitis. Also found to have a blood glucose of 300 with an A1c of 7.8. He denies any knowledge of diabetes in the past. He is afebrile and his white blood cell count is normal. He denied chest pain, dyspnea, abdominal pain, nausea or vomiting. He was presented for admission for further treatment with IV antibiotics and orthopedic consult. - HOSPITAL COURSE Hospital Course: Started on vancomycin and Unasyn at time of admission. Patient was afebrile and his white count was normal during his hospital stay however the redness, swelling and pain in his left leg significantly improved over the following 2 days. He was seen by Dr. Sage with orthopedic surgery. Plan had been to initially treat soft tissue with IV antibiotics to potentially allow for effective closure of wound in the event surgery was done. On the second day Dr Sage determined the patient could be discharged to follow-up in the outpatient setting with orthopedic for surgery at a future date. He was prescribed Augmentin 875/125 p.o. twice daily x7 days upon discharge. His hemoglobin A1c was 7.8 at admission. He was started on Lantus 5 units subcu every night and sliding scale insulin. His blood sugar was between 100 and 180 during his hospital stay. He was discharged with a prescription of Metformin XR 500 mg p.o. daily The sales planning coordinator helped facilitate the patient's ability to get and insurance. He is to establish care with a primary care physician who is expected to continue managing his Metformin. He would also need to see a coding educator in the outpatient setting. - ALLERGIES Allergies/Adverse Reactions: Allergies Allergy/AdvReac Type Severity Reaction Status Date / Time No Known Drug Allergies Allergy Verified 02/23/21 12:38 - MEDICATIONS Home Medications: Ambulatory Orders Medication Instructions Recorded Confirmed Amox/Clav 875/125 [Augmentin 1 tablet PO Q12H 7 Days #14 tablet 02/25/21 875/125 Tab] Metformin HCl [Metformin ER 500 mg PO DAILY 30 Days #30 tab 02/25/21 Gastric] - PHYSICAL EXAM AT DISCHARGE General Appearance: positive: No acute distress, Alert Eyes Bilateral: positive: PERRL, EOMI ENT: positive: No signs of dehydration Neck: positive: No JVD, Trachea midline Respiratory: positive: Chest non-tender, No respiratory distress, Breath sounds nml. negative: Wheezes, Rales, Rhonchi Cardiovascular: positive: Regular rate & rhythm, No murmur Abdomen: positive: Non-tender, No organomegaly, Nml bowel sounds, No distention. negative: Guarding, Rebound Skin: positive: Other (Wpund and redness on the dorsal lateral aspect of his left foot has significantly improved/resolved) Extremities: positive: Full ROM, No pedal edema Neurologic/Psychiatric: positive: Oriented x3, Mood/affect nml - LABS Result Diagrams: 02/25/21 04:54 02/25/21 04:54 - TIME SPENT Time Spent in Discharge (Minutes): 25
--- NOTE | 2021-02-25 12:52 | Discharge Plan ---
Discharge Plan Problem Reviewed?: Yes Disposition: 01 Home, Self Care Condition: Stable Prescriptions: Amox/Clav 875/125 [Augmentin 875/125 Tab] 1 tablet PO Q12H 7 Days #14 tablet Metformin HCl [Metformin ER Gastric] 500 mg PO DAILY 30 Days #30 tab Diet: Diabetic Activity Restrictions: Activity as Tolerated Health Concerns: You presented with complaint of increased pain, swelling, redness and malodorous drainage from an ulcer on the dorsal/lateral aspect of your left foot and fifth toe. Work-up showed that you had a septic MCP joint, osteomyelitis and a foot abscess. He was started on antibiotics which included vancomycin and Unasyn. The redness, swelling and pain improved significantly over the course of your 2-day hospital stay. Wound cultures were obtained which subsequently grew staph aureus You were seen by Dr. Sage of the orthopedic team. You are being discharged home with a prescription of Augmentin 875/125 mg tablets p.o. twice daily x7 days. You were also diagnosed with new onset diabetes mellitus type 2. You were treated with Lantus and sliding scale insulin during your hospital stay. You will be discharged on Metformin XL 500 mg. This would need to be titrated up as tolerated. The discharge coordinators have facilitated you being able to get insurance. You are to establish care with a primary care physician who will be expected to continue management of Metformin. You are to follow-up with orthopedic surgery Dr. Sage in the outpatient clinic for surgery. Call the clinic within the following week. The above was explained to you. You expressed understanding and are in agreement. Plan of Treatment: You presented with complaint of increased pain, swelling, redness and malodorous drainage from an ulcer on the dorsal/lateral aspect of your left foot and fifth toe. Work-up showed that you had a septic MCP joint, osteomyelitis and a foot abscess. He was started on antibiotics which included vancomycin and Unasyn. The r edness, swelling and pain improved significantly over the course of your 2-day hospital stay. Wound cultures were obtained which subsequently grew staph aureus You were seen by Dr. Sage of the orthopedic team. You are being discharged home with a prescription of Augmentin 875/125 mg tablets p.o. twice daily x7 days. You were also diagnosed with new onset diabetes mellitus type 2. You were treated with Lantus and sliding scale insulin during your hospital stay. You will be discharged on Metformin XL 500 mg. This would need to be titrated up as tolerated. The discharge coordinators have facilitated you being able to get insurance. You are to establish care with a primary care physician who will be expected to continue management of Metformin. You are to follow-up with orthopedic surgery Dr. Sage in the outpatient clinic for surgery. Call the clinic within the following week. The above was explained to you. You expressed understanding and are in agreement. Care Goals: You presented with complaint of increased pain, swelling, redness and malodorous drainage from an ulcer on the dorsal/lateral aspect of your left foot and fifth toe. Work-up showed that you had a septic MCP joint, osteomyelitis and a foot abscess. He was started on antibiotics which included vancomycin and Unasyn. The redness, swelling and pain improved significantly over the course of your 2-day hospital stay. Wound cultures were obtained which subsequently grew staph aureus You were seen by Dr. Sage of the orthopedic team. You are being discharged home with a prescription of Augmentin 875/125 mg tablets p.o. twice daily x7 days. You were also diagnosed with new onset diabetes mellitus type 2. You were treated with Lantus and sliding scale insulin during your hospital stay. You will be discharged on Metformin XL 500 mg. This would need to be titrated up as tolerated. The discharge coordinators have facilitated you being able to get insurance. You are to establish care with a primary care physician who will be expected to continue management of Metformin. You are to follow-up with orthopedic surgery Dr. Sage in the outpatient clinic for surgery. Call the clinic within the following week. The above was explained to you. You expressed understanding and are in agreement. Assessment: You presented with complaint of increased pain, swelling, redness and malodorous drainage from an ulcer on the dorsal/lateral aspect of your left foot and fifth toe. Work-up showed that you had a septic MCP joint, osteomyelitis and a foot abscess. He was started on antibiotics which included vancomycin and Unasyn. The redness, swelling and pain improved significantly over the course of your 2-day hospital stay. Wound cultures were obtained which subsequently grew staph aureus You were seen by Dr. Sage of the orthopedic team. You are being discharged home with a prescription of Augmentin 875/125 mg tablets p.o. twice daily x7 days. You were also diagnosed with new onset diabetes mellitus type 2. You were treated with Lantus and sliding scale insulin during your hospital stay. You will be discharged on Metformin XL 500 mg. This would need to be titrated up as tolerated. The discharge coordinators have facilitated you being able to get insurance. You are to establish care with a primary care physician who will be expected to continue management of Metformin. You are to follow-up with orthopedic surgery Dr. Sage in the outpatient clinic for surgery. Call the clinic within the following week. The above was explained to you. You expressed understanding and are in agreement. No Smoking: If you smoke, Please STOP! Call for help.
== END 2021-02-25 14:30 | disposition home or self-care (01) | DRG 549 ==
LOC: ED 11:52 → MS2 13:46
PROVIDERS: ADMIT Internal Medicine; ATTEND Internal Medicine
DX: M00.9 Pyogenic arthritis, unspecified (principal); M86.172 Other acute osteomyelitis, left ankle and foot; L02.612 Cutaneous abscess of left foot; L97.526 Non-pressure chronic ulcer of other part of left foot with bone involvement without evidence of necrosis; E11.69 Type 2 diabetes mellitus with other specified complication; E11.65 Type 2 diabetes mellitus with hyperglycemia; F17.290 Nicotine dependence, other tobacco product, uncomplicated; Z20.822 Contact with and (suspected) exposure to COVID-19; E11.621 Type 2 diabetes mellitus with foot ulcer; E11.42 Type 2 diabetes mellitus with diabetic polyneuropathy
CPT/HCPCS: 0202U; 36415; 71045; 73630; 80048; 83036; 85025; 85651; 86140; 87040; 87070; 87181; 87205; 93005; 96365; 99283; 99285; A9270; J1815; J3370

== ENCOUNTER 2021-02-27 14:05 | Outpatient (CLI) | payer OTHER, MEDICAID | END 2021-02-27 23:59 | disposition home or self-care (01) | LOC: LAB 14:05 | PROVIDERS: ATTEND Orthopaedic Surgery | DX: L03.116 Cellulitis of left lower limb (principal) | CPT/HCPCS: 87070; 87205 ==

== ENCOUNTER 2021-03-05 10:49 | Outpatient (CLI) | payer MEDICAID ==
--- NOTE | 2021-03-05 14:18 | XRAY Report ---
PROCEDURE: Foot 3 View LT INDICATIONS: AMB TECHNIQUE: 3 views of the foot were acquired. COMPARISON: 02/23/2021 FINDINGS: Bones: Compared to prior study, again noted are erosion involving fifth metatarsal head and adjacent lateral aspect of fifth proximal phalangeal base progressed since previous study. Subtle irregularity involving fifth proximal phalangeal base is seen concerning for subtle pathologic fracture. No othe r fracture or dislocation. Soft tissues: Soft tissue swelling surrounding the fifth toe is seen. No tibiotalar joint effusion. Achilles tendon appears normal. IMPRESSION: Osteomyelitis involving the fifth MTP joint as above with suggestion of interval development of nondi splaced pathologic fracture through fifth proximal phalangeal base. Reviewed by: Reyes Chamberlain MD on 03/05/2021 2:17 PM PDT Approved by: Reyes Chamberlain MD on 03/05/2021 2:17 PM PDT Station ID: [id number]
== END 2021-03-05 23:59 | disposition home or self-care (01) ==
LOC: DI.N 10:49
PROVIDERS: ATTEND Orthopaedic Surgery
DX: M86.172 Other acute osteomyelitis, left ankle and foot (principal)

== ENCOUNTER 2021-03-07 06:42 | Day surgery (SDC) | payer MEDICAID ==
[2021-03-07] MEDS ORDERED: CELECOXIB 100 MG CAPSULE PO ONE (06:45)
[2021-03-07] MEDS ORDERED: ACETAMINOPHEN 1,000 MG/100 ML 100 ML IV ONE (06:46)
[2021-03-07] MEDS ORDERED: ceFAZolin 2 GM/50 ML 2 GM/50 ML BAG IV ONE (06:47)
[2021-03-07] MEDS ORDERED: GABAPENTIN 400 MG CAPSULE ONE (06:47)
[2021-03-07] MEDS ORDERED: LACTATED RINGERS 1,000 ML IV ONE ×2 (08:01→11:54)
[2021-03-07 08:25] LABS: B. PARAPERTUSSIS- RESP PCR PAN NOT DETECTED; B. PERTUSSIS- RESP PCR PANEL NOT DETECTED; C. PNEUMONIAE- RESP PCR PANEL NOT DETECTED; CORONAVIRUS 229E-RESP PCR NOT DETECTED; CORONAVIRUS HKU1-RESP PCR NOT DETECTED; CORONAVIRUS NL63-RESP PCR NOT DETECTED; CORONAVIRUS OC43-RESP PCR NOT DETECTED; HUMAN METAPNEUMOVIRUS NOT DETECTED; INFLUENZA A- RESP PCR PANEL NOT DETECTED; INFLUENZA B - RESP PCR PANEL NOT DETECTED; M. PNEUMONIAE- RESP PCR PANEL NOT DETECTED; PARAINFLUENZA VIRUS 1 NOT DETECTED; PARAINFLUENZA VIRUS 2 NOT DETECTED; PARAINFLUENZA VIRUS 3 NOT DETECTED; PARAINFLUENZA VIRUS 4 NOT DETECTED; RHINOVIRUS/ENTEROVIRUS NOT DETECTED; RSV- RESP PCR PANEL NOT DETECTED; SARS-CoV-2 -RESP PCR PANEL NOT DETECTED
[2021-03-07] MEDS ORDERED: VANCOMYCIN 1 GM VIAL ONE ×3 (08:45→10:40)
[2021-03-07] MEDS ORDERED: WATER FOR INJECTION,STERILE 30 ML MC ONE (08:54)
[2021-03-07] MEDS ORDERED: BUPIVACAINE 0.5% PF 10 ML VIAL ONE ×2 (08:56→09:12)
--- NOTE | 2021-03-07 08:58 | ANESTHESIA ---
Pre-Anesthesia VS, & Labs - Diagnosis osteomyelitis - Procedure 5th metatarsal amputation Vital Signs: Temp Pulse Resp BP Pulse Ox 36.8 C 64 12 153/85 H 100 03/07/21 07:59 03/07/21 07:59 03/07/21 07:59 03/07/21 07:59 03/07/21 07:59 Height: 5 ft 9 in Weight (kg): 99.1 kg Body Mass Index: 32.2 BMI Classification: Obese - NPO >8 hours - Lab Results Current Lab Results: Laboratory Tests 03/07/21 07:50: POC Whole Bld Glucose 191 H Home Medications and Allergies Allergies/Adverse Reactions: Allergies Allergy/AdvReac Type Severity Reaction Status Date / Time No Known Drug Allergies Allergy Verified 02/23/21 12:38 Anes History & Medical History - Anesthetic History Anesthesia Complications: reports: No previous complications Family history of Anesthesia Complications: Denies Family history of Malignant Hyperthermia: Denies - Medical History Cardiovascular: reports: None Pulmonary: reports: None Gastrointestinal: reports: None Urinary: reports: None Musculoskeletal: reports: None Endocrine/Autoimmune: reports: None Skin: reports: None Smoking Status: Current every day smoker - Surgical History Dermatologic: reports: Other (ot states he had "surgery on my head from an accident at work, but it was just the skin") Exam General: Alert, Oriented x3, Cooperative Dental: Loose/Frag (loose tooth- upper right side) Mouth Openin Fingerbreadth Neck Mobility: Normal Mallampati classification: III Thyromental Distance: 4-6 cm Respiratory: Lungs clear Cardiovascular: Regular rate Plan Anesthesia Type: General, Other (ankle block) Consent for Procedure(s) Verified and Reviewed: Yes Code Status: Attempt Resuscitation ASA classification: 2-Mild systemic disease Is this case an emergency?: No
[2021-03-07] MEDS ORDERED: METOCLOPRAMIDE 10 MG/2 ML VIAL IVP PRN (09:02)
[2021-03-07] MEDS ORDERED: ePHEDrine 50 MG/ML VIAL IVP PRN (09:02)
[2021-03-07] MEDS ORDERED: ATROPINE ABBOJECT 1 MG/10 ML SYRINGE IVP PRN (09:02)
[2021-03-07] MEDS ORDERED: MORPHINE 2 MG/ML CARPUJECT IVP PRN (09:02)
[2021-03-07] MEDS ORDERED: ONDANSETRON 4 MG/2 ML VIAL IVP PRN (09:02)
[2021-03-07] MEDS ORDERED: HYDROmorphone 0.5 MG/0.5 ML SYRINGE IVP PRN (09:02)
[2021-03-07] MEDS ORDERED: NALOXONE 0.4 MG/ML VIAL IVP PRN (09:02)
[2021-03-07] MEDS ORDERED: LIDOCAINE-MPF 2% 5 ML VIAL ONE ×2 (09:12→09:14)
[2021-03-07] MEDS ORDERED: MIDAZOLAM 2 MG/2 ML VIAL ONE (09:13)
[2021-03-07] MEDS ORDERED: PROPOFOL 200 MG/20 ML VIAL IVP ONE ×5 (09:13→14:16)
[2021-03-07] MEDS ORDERED: fentaNYL 100 MCG/2 ML VIAL ONE ×2 (09:13→11:35)
[2021-03-07] MEDS ORDERED: KETAMINE 500 MG/10 ML VIAL ONE (09:59)
[2021-03-07] MEDS ORDERED: LACTATED RINGERS 1,000 ML IV SCH (10:00)
[2021-03-07] MEDS ORDERED: VANCOMYCIN 1 GM VIAL MC ONE ×2 (10:43)
[2021-03-07] MEDS ORDERED: BACITRACIN ZINC OINT 1 PACKET TOP ONE (11:13)
[2021-03-07] MEDS ORDERED: BACITRACIN ZINC OINT 14 GM TOP ONE (11:14)
[2021-03-07] MEDS ORDERED: oxyCODONE 5 MG TABLET PO PRN (11:29)
[2021-03-07] MEDS ORDERED: KETOROLAC 15 MG/ML VIAL IVP STA (11:29)
--- NOTE | 2021-03-07 11:29 | OPERATIVE REPORT ---
Operative Report - General Procedure Date: 03/07/21 Planned Procedure: Left fifth metatarsal ray amputation Pre-Op Diagnosis: Diabetic foot ulcer, septic arthritis metatarsal phalangeal joint left fift Procedure Performed: Left fifth metatarsal ray amputation Post Op Diagnosis: Same as preoperative diagnosis - Procedure Note Primary Surgeon: Niels Sage MD Secondary Surgeon: Irineo Aguilar PAC, Veto Francisco PAC Anesthesia Provider: Nicki Francis CRNA Anesthesia Technique: Moderate sedation, Regional block Pathology: Amputated specimen involving fifth toe, proximal phalanx and metatarsal sent to pathology and for culture both Estimated Blood Loss (mL): 25 Indications: This is a 45-year-old man who has developed a ulcer over the lateral border of the left foot. The ulcer was overlying the lateral aspect of the left fifth toe metatarsal phalangeal joint. The ulcer communicated with the metatarsal phalangeal joint. This process has developed over a period of approximately a month. He had signs of infection and x-rays which showed osteomyelitis to the contiguous proximal phalanx and metatarsal head as the infection traveled out of the joint into the bones and into the soft tissue overlying the dorsal aspect of the fifth metatarsal proximal to the metatarsophalangeal joint. He had been in the hospital and was placed on intravenous antibiotics to try to decrease the soft tissue infection and also to help improve his diabetic glucose control. He has not been able to engage with primary care other than to the walk-in clinic for his diabetes. His head infection, soft tissue has responded where he had fluctuance proximal to the metatarsophalangeal joint. He does have some drainage but not purulent. He appears to have good pulses and good blood supply. He appears to have decreased sensation to the left foot consistent with some sensory neuropathy. His x-rays to the left foot had been repeated and there was no progression of his osteomyelitis from the previous set of left foot x-rays. Findings: There was complete destruction of the metatarsal phalangeal joint of the left fifth toe, signs of chronic osteomyelitis with necrotic bone to the proximal phalanx and metatarsal head, infected appearing granulation tissue about the metatarsal phalangeal joint but no gross pus encountered at the amputation site. He did have good blood supply and vascularity to tissues around the amputation site. Complications: None - Other Other Information/Narrative: The patient was brought to the operating room. He was placed in the supine position with a gel bag beneath the left buttock to facilitate internal rotation of the left leg. He was given a regional foot and ankle block with supplemental sedation by our anesthesia department, Nicki Aldrich CRNA. The left foot was prepped and draped in a sterile manner in the usual fashion. I did an additional Betadine scrub to thoroughly remove desiccated skin. A timeout procedure was performed by the entire operating room team and all were in agreement. A racquet shaped incision was placed about the left fifth toe with excision of ulcer and extension longitudinally over the fifth metatarsal proximally in a longitudinal fashion. The incision was carried down to bone creating full- thickness skin flaps. The underlying tissue was sharply debrided and the metatarsal was divided proximally with a microsagittal saw removing the fifth metatarsal ray and toe. Both was sent to pathology and microbiology for tissue evaluation and culture. The wounds were thoroughly irrigated with dilute Betadine solution. It should be mentioned that a tourniquet had been applied with a rubber bandage to the left calf at the beginning of the procedure. This tourniquet was released before closure and before a thorough irrigation with dilute Betadine. 2 g of vancomycin powder were inserted into the wound before closure. The skin was closed with 2-0 nylon interrupted sutures. Stainless steel jacquelin were then used to approximate the skin edges. Xeroform, bacitracin, sterile gauze and soft roll were applied. A well-padded short leg fiberglass splint with ankle in neutral dorsiflexion was applied. He did receive 2 g of Ancef intravenously. The patient has been on Augmentin before surgery and this will be continued after surgery. A physician [employer] assistant manager was utilized to help with retraction, provide exposure, protect vital structures, facilitate wound closure and splint application.
[2021-03-07] MEDS: fentaNYL 100 MCG/2 ML VIAL IVP PRN ×3 (11:35→11:50)
[2021-03-07] MEDS ORDERED: LACTATED RINGERS 200 ML IV ONE (11:37)
[2021-03-07] MEDS ORDERED: oxyCODONE 5 MG TABLET ONE (12:24)
--- NOTE | 2021-03-07 13:11 | ANESTHESIA POST OP EVALUATION ---
Anesthesia Post Eval - Post Anesthesia Eval Vitals: Last Vital Signs Temp 36.6 C 03/07/21 12:30 Pulse 55 L 03/07/21 12:30 Resp 16 03/07/21 12:30 BP 160/80 H 03/07/21 12:30 Pulse Ox 100 03/07/21 12:30 CV Function Including HR & BP: Stable Pain Control: Satisfactory Nausea & Vomiting: Negative Mental Status: Baseline Respiratory Status: Airway Patent Hydration Status: Satisfactory Anesthesia Complications: None
[2021-03-07 13:31] VITALS: BP 158/67
[2021-03-07] MEDS ORDERED: KETOROLAC 30 MG/ML VIAL ONE (14:15)
== END 2021-03-07 06:43 | disposition home or self-care (01) ==
LOC: SDS 06:42
PROVIDERS: ATTEND Orthopaedic Surgery
PROC: 0Y6N0Z8 Detachment at Left Foot, Complete 5th Ray, Open Approach (ICD-10-PCS; principal; 2021-03-07 09:30)
DX: M86.172 Other acute osteomyelitis, left ankle and foot (principal); E11.621 Type 2 diabetes mellitus with foot ulcer; L97.529 Non-pressure chronic ulcer of other part of left foot with unspecified severity; Z79.84 Long term (current) use of oral hypoglycemic drugs; E66.9 Obesity, unspecified; Z68.32 Body mass index [BMI] 32.0-32.9, adult; M00.9 Pyogenic arthritis, unspecified; Z20.822 Contact with and (suspected) exposure to COVID-19
CPT/HCPCS: 0202U; 28810; 81599; 87070; 87181; 87205; A9270; J0131; J0690; J3370; J7120

== ENCOUNTER 2021-04-09 11:30 | Outpatient (CLI) | payer MEDICAID ==
[2021-04-09 18:36] LABS: BASOPHILS % (AUTO) 0.6 %; EOSINOPHILS # (AUTO) 0.5 10^3/uL (0.0-0.7); EOSINOPHILS % (AUTO) 7.3 %; HCT - HEMATOCRIT 41.7 % (42.0-52.0); HGB - HEMOGLOBIN 13.1 g/dL (14.0-18.0); LYMPHOCYTES % (AUTO) 28.5 %; MEAN CORPUSCULAR HEMOGLOBIN 26.5 pg (27.0-31.0); MEAN CORPUSCULAR HGB CONC 31.4 g/dL (32.0-36.0); MEAN CORPUSCULAR VOLUME 84.2 fL (80.0-94.0); MONOCYTES # (AUTO) 0.4 10^3/uL (0.0-1.0); MONOCYTES % (AUTO) 5.6 %; NEUTROPHILS # (AUTO) 4.1 10^3/uL (1.5-6.6); NEUTROPHILS % (AUTO) 57.9 %; PLT - PLATELET COUNT 301 10^3/uL (130-450); RED BLOOD COUNT 4.95 10^6/uL (4.70-6.10); RED CELL DISTRIBUTION WIDTH 13.7 % (12.0-15.0); WHITE BLOOD COUNT 7.1 x10^3/uL (4.8-10.8)
[2021-04-09 19:09] LABS: ALBUMIN/GLOBULIN RATIO 1.1 (1.0-2.2); ALKALINE PHOSPHATASE 64 IU/L (42-121); ALT ALANINE AMINOTRANSFERASE 19 IU/L (10-60); AST ASPARTATE AMINOTRANSFERASE 23 IU/L (10-42); BILIRUBIN,TOTAL 0.7 mg/dL (0.2-1.0); BUN - BLOOD UREA NITROGEN 7 mg/dL (6-20); CARBON DIOXIDE - CO2 23 mmol/L (21-32); CHLORIDE 105 mmol/L (101-111); CHOL/HDL RATIO 4.7 (<5.0); CHOLESTEROL 229 mg/dL; CREATININE 0.9 mg/dL (0.6-1.2); GFR - MDRD 91 (>89); GLUCOSE 180 mg/dL (70-100); HDL CHOLESTEROL 49 mg/dL; LDL CHOLESTEROL,CALCULATED 160 mg/dL; LDL/HDL RATIO 3.3 (<3.6); POTASSIUM 3.7 mmol/L (3.5-5.0); SODIUM 138 mmol/L (135-145); TOTAL PROTEIN 7.7 g/dL (6.7-8.2); TRIGLYCERIDES 101 mg/dL; VLDL CHOLESTEROL 20 mg/dL
[2021-04-09 19:38] LABS: ESTIMATED AVERAGE GLUCOSE 174 mg/dL (70-100); HEMOGLOBIN A1c% 7.7 % (4.27-6.07)
== END 2021-04-09 23:59 | disposition home or self-care (01) ==
LOC: LAB.WCP 11:30
PROVIDERS: ATTEND Family Medicine
DX: E11.9 Type 2 diabetes mellitus without complications (principal)
CPT/HCPCS: 36415; 80053; 80061; 83036; 83721; 85025